=== PATIENT | male | born 1980 | race Caucasian/White ===

== ENCOUNTER 2017-05-25 15:41 | Emergency (ER) | payer OTHER ==
[2017-05-25 15:52] VITALS: PULSE 79
--- NOTE | 2017-05-25 15:59 | EDPHY ---
H & P Stated Complaint: bilaterally swollen ankles Time Seen by Provider: 05/25/17 15:46 HPI/ROS: Chief complaint: Bilateral leg pain History of present illness: This is a 36-year-old male who presents to the emergency department in the custody of the police reporting bilateral leg pain. Patient has a history of both DVT and pulmonary embolism that occurred in March of 2015. He was placed on Coumadin. He was living in [place] at that time. He moved after a number of months out of state and never had a formal follow-up. He tells me he did have a workup for why he got the blood clot and has some type of gene disorder. He is not currently on anticoagulants. Review of systems: A 10 point review of systems was obtained and other than described above was negative - Personal History Current Tetanus/Diphtheria Vaccine: Yes Current Tetanus Diphtheria and Acellular Pertussis (TDAP): Yes - Medical/Surgical History Hx Asthma: No Hx Chronic Respiratory Disease: No Hx Diabetes: No Hx Cardiac Disease: No Hx Renal Disease: No Hx Cirrhosis: No Hx Alcoholism: No Hx HIV/AIDS: No Hx Splenectomy or Spleen Trauma: No Other PMH: HTN,. DVT diagnosed at [place] and placed on Coumadin and Lovenox, IV drug abuse - Social History Smoking Status: Former smoker - Physical Exam Exam: General Appearance: Alert, nontoxic. Eyes: Pupils equal and round no pallor or injection. ENT, Mouth: Mucous membranes moist. Respiratory: There are no retractions, lungs are clear to auscultation. Cardiovascular: Regular rate and rhythm. Gastrointestinal: Abdomen is soft and non tender, no masses, bowel sounds normal. Neurological: Alert and oriented x4. Strength and sensation intact and symmetrical. Skin: Warm and dry, no rashes. Musculoskeletal: Extremities are symmetrical, full range of motion. Psychiatric: Patient appears anxious. Constitutional: Initial Vital Signs Temperature (C) 36.8 C 05/25/17 15:48 Heart Rate 79 05/25/17 15:48 Respiratory Rate 16 05/25/17 15:48 Blood Pressure 149/100 H 05/25/17 15:48 O2 Sat (%) 94 05/25/17 15:48 O2 Delivery Mode Room Air Allergies/Adverse Reactions: No Known Allergies Allergy (Unverified 05/25/17 15:52) Home Medications: Medication Instructions Recorded NK [No Known Home Meds] 05/25/17 Medical Decision Making - Diagnostics Imaging: Discussed imaging studies w/ orthopedically impaired teacher Radiologist ED Course/Re-evaluation: Patient's care was discussed with my secondary supervising physician Dr. Christofer Souza. Patient presents to the emergency department reporting bilateral leg pain. He has a history of a DVT and PE in 2014. We did obtain records from [facility] in [place] where he was seen for this with a discharge summary of 04/21/2015 with discharge diagnosis of acute pulmonary embolism, hemoptysis, hypoxia and pulmonary infarction. He is not currently on anticoagulation therapy. On evaluation his legs were neurovascularly intact. Ultrasound of the legs were obtained and negative. Patient was to be discharged to the prison as he had no further complaints and his vital signs were stable. However, during his stay he was moved from a hensley bed into his own private room. He apparently called the internal communication board of the hospital and reported a false bomb threat. Security and police were involved. He was to be discharged with police. However, just prior to being discharged he had an apparent seizure. A sternal rub was performed and he immediately woke up and screamed at me. I do not believe this was a true seizure. He then started to complain of chest pain. On further investigation of this complaint he states it was actually abdominal pain similar to pain he had when he had cholecystitis and had to have his gallbladder removed. Patient continued to change his story on multiple occasions. He did not provide a consistent story. He did appear to be exhibiting strongly manipulative behavior. I believe he is appropriate for discharge. He is discharged to prison by EMS with police accompanying him. He is given referral information to a primary care doctor for follow-up if he does not stay in prison. Differential Diagnosis: Included but not limited to superficial thrombophlebitis, DVT, contusion, sprain or strain - Data Points Medications Given: Discontinued Medications Lorazepam (Ativan Injection) 2 mg IM EDNOW ONE Stop: 05/25/17 17:34 Last Admin: 05/25/17 17:35 Dose: 2 mg Departure - Departure Disposition: Law Enforcement/Court/Group Home Clinical Impression: Leg pain Condition: Good Instructions: Leg Pain (ED) Additional Instructions: Follow-up with a primary care doctor for continued evaluation and care If symptoms worsen or new symptoms develop return to the emergency room for recheck Pt med cleared for prison. Medically cleared for prison. Referrals: [facility],. [Clinic] - As per Instructions
[2017-05-25 17:16] VITALS: BP 148/90; RESP 18; TEMP 98.4; O2SAT 97
[2017-05-25] MEDS ORDERED: LORazepam 2 MG/ML INJ ONE (17:30)
[2017-05-25] MEDS ORDERED: LORazepam 2 MG/ML INJ IM ONE (17:33)
== END 2017-05-25 18:24 ==
DX: M79.606 Pain in leg, unspecified (principal); I10 Essential (primary) hypertension; Z87.891 Personal history of nicotine dependence
CPT/HCPCS: J2060

== ENCOUNTER 2017-05-26 15:14 | Inpatient (IN) | payer OTHER ==
[2017-05-26] MEDS ORDERED: levETIRAcetam 1,000 MG in NS 100 ML IV ONE (15:20)
--- NOTE | 2017-05-26 15:23 | CPEKG ---
Heart Rate: 96 RR Interval: 625 P-R Interval: 160 QRSD Interval: 86 QT Interval: 364 QTC Interval: 460 P Crane: 82 QRS Crane: -29 T Wave Crane: 39 EKG Severity - ABNORMAL ECG - EKG Impression: SINUS RHYTHM EKG Impression: PROBABLE INFERIOR INFARCT, OLD Electronically Signed By: Christofer Souza 26-May-2017 16:19:07
--- NOTE | 2017-05-26 15:24 | EDPHY ---
H & P Time Seen by Provider: 05/26/17 15:14 HPI/ROS: CHIEF COMPLAINT: Seizure HISTORY OF PRESENT ILLNESS: Patient arrives by EMS from the halfway after having had 3 witnessed tonic-clonic episodes. He was in the emergency department yesterday for evaluation of leg pain and discharged. The patient has a history per EMS of alcohol and benzodiazepine use, and was given 150 mg of Librium today at the halfway on the withdrawal protocol. In the EMS ambulance on the way he was seen to have another less than 1 min tonic-clonic arm and leg shaking episode. Patient on arrival says he had a headache but denies other symptoms. He says he knows his age and where he is. He denies neck or back pain or weakness or numbness in extremities. REVIEW OF SYSTEMS: Eye: no change in vision ENT: no sore throat Cardiac: no chest pain or syncope Pulmonary: no cough or SOB Abdomen: no vomiting, diarrhea, abdominal pain Musculoskeletal: no back pain or neck pain Skin: no rash Neuro: HPI Constitutional: no fever : no urinary symptoms A comprehensive 10 point review of systems is otherwise negative aside from elements mentioned in the history of present illness. PAST MEDICAL HISTORY: Negative for seizures, positive for ethanol and benzodiazepines, pulmonary embolism in 2015, leg ultrasound negative yesterday for DVT. Social history: In custody General Appearance: Sleepy but responds appropriately to questions and follows commands. Eyes: No scleral icterus. ENT, Mouth: Normal mucous membranes. No tongue laceration or abrasion. Respiratory: Normal respiratory effort, breath sounds equal, lungs are clear to auscultation. Cardiovascular: Regular rate and rhythm. Gastrointestinal: Abdomen is soft and non tender. Neurological: Follows commands, able to state age and place, moves all 4 extremities on command. Skin: Warm and dry, no rashes. Musculoskeletal: No midline spinal tenderness. No extremity deformity or tenderness. Psychiatric: Not agitated. Complete psychiatric exam not performed because of the patient's sleepiness. Emergency Department course/MDM: Plan for EKG, chemistry panel, noncontrast head CT. AGUSTIN Cartagena 1 g. 0942: Noncontrast head and cervical spine CT personally interpreted as negative for abnormality. Confirmed as negative by Dr. Thrasher at 8360. Dr. Flores will consult, unclear of epilepsy or nonepileptic seizure or withdrawal from substances or alcohol. Admit for observation, seizure control and Neurology consultation. 1726: No further seizure, urine tox noted. Smoking Status: Former smoker Constitutional: Initial Vital Signs Temperature (C) 36.9 C 05/26/17 15:15 Heart Rate 106 H 05/26/17 15:15 Respiratory Rate 18 05/26/17 15:15 Blood Pressure 150/112 H 05/26/17 15:15 O2 Sat (%) 100 05/26/17 15:15 O2 Delivery Mode Room Air Allergies/Adverse Reactions: No Known Allergies Allergy (Unverified 05/25/17 15:52) Home Medications: Medication Instructions Recorded NK [No Known Home Meds] 05/26/17 Medical Decision Making - Diagnostics EKG Interpretation: 12-lead EKG interpreted by me; official reading is in trace master. My interpretation is sinus rhythm, inferior Q-waves noted, rate 96. Imaging Results: Imaging Impressions Head CT 05/26/17 15:19 Impression: 1. Normal head CT. If symptoms worsen, additional imaging may be necessary. Findings discussed with Christofer Souza M.D. at 16:57 hour, 05/26/2017. Cervical Spine CT 05/26/17 15:20 Impression: 1. Chronic disk degeneration with mild acquired spinal stenosis at C5-C6. 2. No acute traumatic sequelae. Imaging: I viewed and interpreted images myself Differential Diagnosis: Differential diagnosis considered for a seizure including but not limited to electrolyte abnormality, alcohol withdrawal, medication noncompliance, head injury, and breakthrough seizure. Consult/Admit Bed Type: [facility] 1558, [place] 1604 Critical Care Time: Critical care time spent by me, Dr. Souza, exclusively with the care of this patient was 30 minutes, exclusive of PA or IMPORT EXPORT MANAGER time and exclusive of separate procedures. The organ system at risk was neurologic and I ordered multiple diagnostics, IV anti epileptic medications, discussion with hospitalist neurologist, serial exams to stabilize the patient and prevent worsening of the patient's condition. - Data Points Laboratory Results: Laboratory Results 05/26/17 15:25 05/26/17 15:25 05/26/17 05/26/17 05/26/17 15:25 15:25 15:25 WBC 9.54 10^3/uL H 10^3/uL (3.80-9.50) RBC 5.46 10^6/uL 10^6/uL (4.40-6.38) Hgb 16.2 g/dL g/dL (13.7-17.5) Hct 47.0 % % (40.0-51.0) MCV 86.1 fL fL (81.5-99.8) MCH 29.7 pg pg (27.9-34.1) MCHC 34.5 g/dL g/dL (32.4-36.7) RDW 13.1 % % (11.5-15.2) Plt Count 342 10^3/uL 10^3/uL (150-400) MPV 9.5 fL fL (8.7-11.7) Neut % (Auto) 73.6 % % (39.3-74.2) Lymph % (Auto) 20.6 % % (15.0-45.0) [place] % (Auto) 4.5 % % (4.5-13.0) Eos % (Auto) 0.3 % L % (0.6-7.6) Baso % (Auto) 0.4 % % (0.3-1.7) Nucleat RBC Rel Count 0.0 % % (0.0-0.2) Absolute Neuts (auto) 7.01 10^3/uL H 10^3/uL (1.70-6.50) Absolute Lymphs (auto) 1.97 10^3/uL 10^3/uL (1.00-3.00) Absolute Monos (auto) 0.43 10^3/uL 10^3/uL (0.30-0.80) Absolute Eos (auto) 0.03 10^3/uL 10^3/uL (0.03-0.40) Absolute Basos (auto) 0.04 10^3/uL 10^3/uL (0.02-0.10) Absolute Nucleated RBC 0.00 10^3/uL 10^3/uL (0-0.01) Immature Gran % 0.6 % % (0.0-1.1) Immature Gran # 0.06 10^3/uL 10^3/uL (0.00-0.10) Sodium 145 mEq/L mEq/L (135-145) Potassium 4.2 mEq/L mEq/L (3.5-5.2) Chloride 105 mEq/L mEq/L (97-110) Carbon Dioxide 25 mEq/l mEq/l (22-31) Anion Gap 15 mEq/L mEq/L (8-16) BUN 11 mg/dL mg/dL (7-23) Creatinine 1.0 mg/dL mg/dL (0.7-1.3) Estimated GFR > 60 Glucose 99 mg/dL mg/dL (70-100) Calcium 9.9 mg/dL mg/dL (8.5-10.4) Total Bilirubin 0.4 mg/dL mg/dL (0.1-1.4) Conjugated Bilirubin 0.3 mg/dL mg/dL (0.0-0.5) Unconjugated Bilirubin 0.1 mg/dL mg/dL (0.0-1.1) AST 16 IU/L L IU/L (17-59) ALT 22 IU/L IU/L (21-72) Alkaline Phosphatase 112 IU/L IU/L (38-126) Total Protein 7.8 g/dL g/dL (6.3-8.2) Albumin 3.8 g/dL g/dL (3.5-5.0) Ethyl Alcohol < 10 mg/dL mg/dL (0-10) Medications Given: Folic Acid (Folic Acid) 1 mg PO DAILY TIM Stop: 11/22/17 16:14 Last Admin: 05/26/17 16:25 Dose: Not Given Multivitamins (Tab-A-Stephie) 1 each PO DAILY TIM Stop: 11/22/17 16:14 Last Admin: 05/26/17 16:25 Dose: Not Given Discontinued Medications Levetiracetam 1,000 mg/ Sodium (Chloride) 110 mls @ 420 mls/hr IV EDNOW ONE Stop: 05/26/17 15:35 Last Admin: 05/26/17 15:47 Dose: 110 mls Thiamine HCl 500 mg/ Sodium (Chloride) 100 mls @ 200 mls/hr IV EDNOW ONE Stop: 05/26/17 17:14 Last Admin: 05/26/17 16:59 Dose: 100 mls Departure - Departure Disposition: [facility] Clinical Impression: Seizure disorder Condition: Good
[2017-05-26 15:35] LABS: PLATELET COUNT 342 10^3/uL (150-400)
[2017-05-26] MEDS ORDERED: ONDANSETRON 4 MG/2 ML VIAL IVP PRN (16:08)
[2017-05-26] MEDS ORDERED: ONDANSETRON DISINTEGRATING 4 MG TAB PO PRN (16:08)
[2017-05-26] MEDS ORDERED: diphenhydrAMINE 25 MG CAP PO PRN (16:09)
[2017-05-26] MEDS ORDERED: LORazepam 1 MG TAB PO PRN (16:09)
[2017-05-26] MEDS: MULTIVITAMINS 1 EACH TAB PO SCH (16:25)
[2017-05-26] MEDS: FOLIC ACID 1 MG TAB PO SCH (16:25)
[2017-05-26] MEDS ORDERED: THIAMINE HCL 500 MG in NS 100 ML IV ONE (16:45)
[2017-05-26] MEDS ORDERED: LR 1,000 ML IV SCH (18:00)
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
--- NOTE | 2017-05-26 20:54 | PDMN ---
Medical Necessity Medical necessity: Pt meets INPT criteria per MD and [facility] M-595 Substance- Related Disorders (seizures - suspect alcohol related, L-sided weakness, polysubstance abuse, htn; hx DVT, PE).
[2017-05-27] MEDS: LORazepam 2 MG/ML INJ IVP PRN ×5 (00:20→19:56)
[2017-05-27 05:57] LABS: PLATELET COUNT 319 10^3/uL (150-400)
[2017-05-27] MEDS: MULTIVITAMINS 1 EACH TAB PO SCH (08:54)
[2017-05-27] MEDS: ENOXAPARIN 40 MG/0.4 ML SYR SC SCH (08:54)
[2017-05-27] MEDS: FOLIC ACID 1 MG TAB PO SCH (08:54)
[2017-05-27] MEDS: chlordiazePOXIDE 25 MG CAP PO PRN ×4 (08:54→22:49)
[2017-05-27] MEDS: THIAMINE HCL 500 MG in NS 100 ML IV SCH (08:54)
[2017-05-27] MEDS: ACETAMINOPHEN 325 MG TAB PO PRN (08:55)
--- NOTE | 2017-05-27 12:07 | ASMTCASEMG ---
Living Arrangements What is your living Answers: Alone arrangement? Who do you live with? Type Of Residence What kind of residence do Answers: [facility]? Discharge Plan Comments Coordination Status Comments Notes: Patient is a 36yo single male who was brought from the retirement after having 3 witnessed seizures. Patient states he drinks a pint of liquor daily and also injects heroin. Patient's labs showed positive for benzos,opioids, amphetamine, and cocaine. He was admitted for seizures, left sided weakness, hypertension, polysubstance abuse, etoh dependence, and a hx of deep vein thrombosis. Patient states he lives in [place]. He will most likely d/c back to retirement. CM available for consult and/or any d/c needs that arise. Date Signed: 05/27/2017 12:07 PM Electronically Signed By:Deborah Perez LCSW
[2017-05-27] MEDS ORDERED: LOPERAMIDE HCL 2 MG CAP PO PRN (12:17)
--- NOTE | 2017-05-27 12:22 | HOSPPROG ---
Hospitalist Progress Note Assessment/Plan: This is a 36-year-old male new to my care presented [facility] emergency department [facility] after having: # seizure most likely multifactorial in the setting of polysubstance withdrawal including alcohol and opiates # resolved left-sided weakness likely due Ned's paralysis # acute alcohol withdrawal # hypertension # history of DVT and PE Plan: -will provide symptomatic treatment for his alcohol withdrawal with oral Librium -trial Imodium and Bentyl as needed for the abdominal discomfort most likely due to opiate withdrawal Not currently ready for discharge. Will attempt to control his symptoms with oral Librium. Continue inpatient care Subjective: Feels drowsy today. Denies headache. Denies numbness or weakness. He has been having some diarrhea and abdominal cramping. He denies any further seizures Objective: Vital Signs Temp Pulse Resp BP Pulse Ox 36.7 C 74 18 135/77 H 99 05/27/17 08:45 05/27/17 08:45 05/27/17 08:45 05/27/17 08:45 05/27/17 08:45 Laboratory Results 05/27/17 05:49 05/27/17 05:49 05/26/17 05/27/17 05/28/17 05:59 05:59 05:59 Intake Total 1425 Output Total 600 550 Balance 825 -550 - Physical Exam Constitutional: no apparent distress, appears nourished, not in pain Ears, Nose, Mouth, Throat: moist mucous membranes, hearing normal, ears appear normal, no oral mucosal ulcers, other (No tongue laceration) Cardiovascular: regular rate and rhythym, no murmur, rub, or gallop Respiratory: no respiratory distress, no rales or rhonchi, clear to auscultation Neurologic: AAOx3, sensation intact bilaterally, CN II-XII Intact, other ( Resting tremor), No facial droop ICD10 Worksheet Patient Problems: Problems Problem Status Onset Seizure disorder Acute
--- NOTE | 2017-05-27 12:28 | NEUROPROG ---
Assessment: HOSPITAL NEUROLOGY CONSULT REQUESTING: Kim Santana MD REASON: seizures HPI: 36 year old [facility]. Patient is sedated from medication, so unable to get a history from him. From records review, he was incarcerated 05/25. He has a history of alcohol abuse (drinking a pint of liquor daily), benzodiazepine abuse, heroin abuse. He has been unable to ingest any alcohol or illicit substances since. He was started on withdrawal precautions on 05/26. However, he apparently had 3 witnessed generalized convulsions at the snf, and another en route with EMS. He also had some traneitn left-sided paralysis after his last seizure. His BAL was negative on arrival. His UDS was positive for benzos, cocaine, amphetamines and opiates. CT head wo was normal. He was admitted for suspected withdrawal and seizures. He received multiple doses of benzodiazepine prior to my arrival today, so he is sedated. ROS: As per the HPI, otherwise a complete 12 point ROS was performed and is negative ALLERGIES AND MEDS: As recorded in the EMR - reviewed and reconciled PFSH: As per the intake H&P by Dr. Santana from 05/26 EXAM: VS reviewed in EMR GEN: WDWN laying in NAD HEENT: NCAT, sclera anicteric, conjunctiva not injected, MMM, oropharynx clear, no scalp tenderness, no visible tongue laceration NECK: supple, nontender, no meningismus CV: RRR s1 s2 wo m/r/c/g. Carotid pulses 2+ wo bruit NEURO: MS: sedated, arouses briefly to voice. He does not vocalize, but nods appropriately. Follows simple appendicular commands. Attends to both sides. Unable to assess higher cortical function due to sedation CN: pupils 3mm round and reactive. Unable to visualize fundi. Blinks to threat OU. Primary gaze centered. Full ocular motility. Grimace to nox stim of face. Face symmetric. Hearing grossly intact to my voice. Palatoglossal movements intact. Shoulder shrug intact. MOTOR: normal bulk/tone. No adventitial movements. Raises arms and legs against gravity in a sustained manner, but he is unable to participate in segmental exam. SENSORY: localizes to nox stim in BUEs, withdraws in BLEs. COORD: no gross ataxia REFLEX: plantars down. No clonus. DTRS 2/4. GAIT: unable to assess DATA REVIEW: Labs reviewed in EMR PERSONALLY INTERPRETED RESULTS AND DATA: CT head wo - normal IMPRESSION AND RECOMMENDATIONS: // WITHDRAWAL SEIZURES +/- PROVOKED SEIZURES FROM SUBSTANCES // POLYSUBSTANCE ABUSE // PHI'S PARALYSIS - RESOLVED Patient with seizures in the setting of stopping substance use due to incarceration. His NASCIMENTO is negative. UDS with opiates, cocaine, amphetamines, benzos. Multiple substrates for seizure, including withdrawal and stimulants. His exam is nonfocal. CT head normal. Would continue with CIWA protocol, though, he is seemingly oversedated, so consider using symptom triggered therapy with single agent benzo (instead of both lorazepam and chlordiazepoxide). Continue seizure precautions. Continue MVI/thiamine. Will sign off. Recall PRN. Objective: Vital Signs Temp Pulse Resp BP Pulse Ox 36.7 C 74 18 135/77 H 99 05/27/17 08:45 05/27/17 08:45 05/27/17 08:45 05/27/17 08:45 05/27/17 08:45 Laboratory Results 05/27/17 05:49 05/27/17 05:49 05/26/17 05/27/17 05/28/17 05:59 05:59 05:59 Intake Total 1425 Output Total 600 550 Balance 825 -550 Allergies/Adverse Reactions: No Known Allergies Allergy (Unverified 05/25/17 15:52)
[2017-05-27] MEDS: DICYCLOMINE 20 MG TAB PO PRN (12:46)
[2017-05-27] MEDS: METHOCARBAMOL 750 MG TAB PO PRN (13:38)
[2017-05-27] MEDS ORDERED: LORazepam 2 MG/ML INJ ONE (13:50)
[2017-05-28] MEDS: LORazepam 2 MG/ML INJ IVP PRN ×3 (00:32→14:43)
[2017-05-28 04:09] VITALS: RESP 18
[2017-05-28 05:36] LABS: PLATELET COUNT 296 10^3/uL (150-400)
--- NOTE | 2017-05-28 09:08 | HOSPPROG ---
Hospitalist Progress Note Assessment/Plan: #Seizures: suspect due to withdrawal from several stimulant drugs. CTH negative. D/w Dr. Flores who states EEG would be confounded now with BZs on board. Will need as outpatient. Schedule Librium and add Keppra 500mg BID #Polysubstance abuse: needs assistance with treatment. MV/T/F #Social issues: will be jailed after admission #Diet: regular Lovenox #Disp: cont inpatient admission with recurrent seizures, requiring bzs, neuro check Subjective: seizure with incontinence overnight. Another one this morning. Objective: Vital Signs Temp Pulse Resp BP Pulse Ox 36.3 C 71 18 132/87 H 99 05/28/17 04:00 05/28/17 04:00 05/28/17 04:00 05/28/17 04:00 05/28/17 04:00 Laboratory Results 05/28/17 05:28 05/28/17 05:28 05/27/17 05/28/17 05/29/17 05:59 05:59 05:59 Intake Total 1425 3055 Output Total 600 850 Balance 825 2205 - Time Spent With Patient Time Spent with Patient: greater than 35 minutes Time Spent with Patient: Greater than 35 minutes spent on this patients care, greater than 50% of time spent counseling, educating, and coordinating care regarding the above mentioned plan. - Physical Exam Constitutional: other (tearful) Eyes: PERRL Ears, Nose, Mouth, Throat: moist mucous membranes Cardiovascular: regular rate and rhythym Respiratory: no respiratory distress Gastrointestinal: normoactive bowel sounds, soft, non-tender abdomen Skin: other (track shelton over arms) Musculoskeletal: full muscle strength, other (legs shackled) Neurologic: AAOx3, CN II-XII Intact, other (no tremor or tongue fasiculation) Psychiatric: interacting appropriately, anxious, depressed, flat affect, other ICD10 Worksheet Patient Problems: Problems Problem Status Onset Seizure disorder Acute
[2017-05-28] MEDS: FOLIC ACID 1 MG TAB PO SCH (09:23)
[2017-05-28] MEDS: MULTIVITAMINS 1 EACH TAB PO SCH (09:23)
[2017-05-28] MEDS: THIAMINE HCL 500 MG in NS 100 ML IV SCH (09:28)
[2017-05-28] MEDS ORDERED: chlordiazePOXIDE 25 MG CAP PO PRN (09:45)
[2017-05-28] MEDS: ENOXAPARIN 40 MG/0.4 ML SYR SC SCH (09:56)
[2017-05-28] MEDS ORDERED: levETIRAcetam 500 MG TAB PO SCH (11:00)
--- NOTE | 2017-05-28 11:08 | NEUROPROG ---
Assessment: Received notification from Dr. Santana that this patient had 2 spells yesterday evening concerning for seizure. He is still well within the withdrawal window with elevated CIWA scores. Would continue symptom triggered benzo therapy per protocol. Can add levetiracetam 500mg BID given multiple substrates for seizure, including withdrawal and stimulant exposure. 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 EEG now would likely be confounded by his benzos on board, and management is not going to change in any event. Please call with any other concerns. Objective: Vital Signs Temp Pulse Resp BP Pulse Ox 36.3 C 71 18 132/87 H 99 05/28/17 04:00 05/28/17 04:00 05/28/17 04:00 05/28/17 04:00 05/28/17 04:00 Laboratory Results 05/28/17 05:28 05/28/17 05:28 05/27/17 05/28/17 05/29/17 05:59 05:59 05:59 Intake Total 1425 3055 Output Total 600 850 Balance 825 2205 Allergies/Adverse Reactions: No Known Allergies Allergy (Unverified 05/25/17 15:52)
--- NOTE | 2017-05-28 12:08 | ASMTCMCOM ---
CM Note CM Note Notes: Patient had a seizure with incontinence overnight. Eval for possible seizure disorder not related to ETOH and drug use. D/C plan remains return to [facility]. CM available for consult. Date Signed: 05/28/2017 12:07 PM Electronically Signed By:Deborah Perez LCSW
[2017-05-28] MEDS: ACETAMINOPHEN 325 MG TAB PO PRN (13:39)
[2017-05-28] MEDS: METHOCARBAMOL 750 MG TAB PO PRN (13:39)
[2017-05-28] MEDS ORDERED: chlordiazePOXIDE 25 MG CAP PO SCH (16:00)
[2017-05-28 16:23] VITALS: BP 127/76; PULSE 86; TEMP 98.5; O2SAT 98
[2017-05-28] MEDS: DICYCLOMINE 20 MG TAB PO PRN (18:00)
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
--- NOTE | 2017-05-29 13:43 | GDS ---
[f rep st] DISCHARGE SUMMARY DISCHARGE DIAGNOSES: 1. Seizures. 2. Polysubstance abuse. 3. Alcohol abuse. 4. Social issues. 5. Left against medical advice. HISTORY OF PRESENT ILLNESS: A 36-year-old male with history hypertension, PE, DVT in 2014, who was initially seen at [facility] on 06/04/2017 with bilateral leg pain with concern of clot. Ultrasound was negative for DVT. He returned the following day from snf after having 3 witnessed tonic-clonic seizures. He reports drinking a pint of liquor daily, and stopped a couple days ago. He also injects heroin. HOSPITAL COURSE BY PROBLEM: 1. Seizures: Unclear if these were related to the abrupt cessation of several stimulant acting drugs, as positive for amphetamines and cocaine, as well as alcohol. He was treated aggressively on CIWA, and also started on Keppra 500 mg twice daily. Would recommend an EEG as an outpatient, as benzodiazepines could confound results here. He was evaluated by Neurology and recommended that as an outpatient. 2. Alcohol dependence. Again, aggressive treatment with CIWA. He was started on Librium. 3. Hypertension. He is not medicated as an outpatient, will need followup. 4. History of deep vein thrombosis. He had a negative ultrasound here. 5. Against medical advice: Unfortunately, the patient left AMA the evening of 05/28/2017, which places him at risk with recurrent seizures. It is still difficult to discern whether it was related to withdrawal from several substances versus a true seizure disorder. He was not provided scripts since he left before a physician could see him. DISPOSITION: Again, the patient left AMA. FOLLOWUP: Would need to see PCP and a neurologist. /[id number]/MODL MTDD
== END 2017-05-28 18:45 | disposition left against medical advice (07) | DRG 894 ==
LOC: EDUNIT# → F2N 18:45
PROVIDERS: ADMIT Internal Medicine; ATTEND Internal Medicine
DX: F10.239 Alcohol dependence with withdrawal, unspecified (principal); F10.288 Alcohol dependence with other alcohol-induced disorder; R56.9 Unspecified convulsions; G83.84 Todd's paralysis (postepileptic); F11.10 Opioid abuse, uncomplicated; F14.10 Cocaine abuse, uncomplicated; F15.10 Other stimulant abuse, uncomplicated; F13.10 Sedative, hypnotic or anxiolytic abuse, uncomplicated; M48.02 Spinal stenosis, cervical region; Z86.711 Personal history of pulmonary embolism; Z87.891 Personal history of nicotine dependence; Z86.718 Personal history of other venous thrombosis and embolism; Z87.828 Personal history of other (healed) physical injury and trauma
CPT/HCPCS: 80305; 82947-QW; 96374; G0480; J1650; J1953; J2060; J2405; J3411